=== PATIENT | female | born 1970 | race Caucasian/White ===

== ENCOUNTER 2023-10-29 13:45 | Emergency (ER) | payer BC, SELFPAY ==
[2023-10-29 13:51] VITALS: BP 135/102; BMI 20.7
[2023-10-29 14:16] LABS: % Basophils 0.8 % (0-2); % Eosinophils 0.5 % (0-6); % Immature Granulocytes 0.3 % (0-0.5); % Lymphocytes 25.6 % (20.5-51.1); % Monocytes 5.4 % (1.7-9.3); % Neutrophils 67.4 % (42.2-75.2); Absolute Basophils 0.1 10^3/uL (0-0.2); Absolute Lymphocytes 1.5 10^3/uL (1.2-3.4); Absolute Monocytes 0.3 10^3/uL (0.1-0.6); Hematocrit 39.2 % (37.0-47.0); Hemoglobin 13.7 g/dL (12.0-16.0); Mean Corp Hgb Conc. 34.9 g/dL (33.0-37.0); Mean Corpuscular Hgb 30.3 pg (27.0-31.0); Mean Corpuscular Volume 86.7 fL (81.0-99.0); Mean Platelet Volume 10.4 fL (7.4-10.4); Nucleated Red Blood Cells % 0 %; Platelet Count 231 10^3/uL (130-400); Red Blood Cell Count 4.52 10^6/uL (4.20-5.40); White Blood Cell Count 5.9 10^3/uL (4.8-10.8)
[2023-10-29 14:27] LABS: APTT 24.2 Sec (23.4-35.0)
[2023-10-29 14:28] LABS: ALT (SGPT) 18 U/L (0-35); AST (SGOT) 27 U/L (14-36); Albumin 4.7 g/dl (3.5-5.0); Alkaline Phosphatase 96 U/L (38-126); Blood Urea Nitrogen 17 mg/dl (7-17); Calcium 9.7 mg/dl (8.4-10.2); Carbon Dioxide 28 mmol/L (22-30); Chloride 102 mmol/L (98-107); Estimated Creatinine Clearance 76 ml/min; Glucose 103 mg/dl (70-99); Potassium 3.7 mmol/L (3.5-5.1); Sodium 136 mmol/L (135-145); Total Bilirubin 0.9 mg/dl (0.2-1.3); Total Protein 7.6 g/dl (6.3-8.2); eGFR > 60.00
[2023-10-29 14:40] LABS: Troponin I < 0.012 ng/ml
--- NOTE | 2023-10-29 15:59 | ED.GENMED ---
History of Present Illness
General
Chief Complaint: Cardiac Symptoms
Source: patient
Exam Limitations: none
Time Seen by Provider: 10/29/23 15:57
Travel History
Have you had any contact with someone who has COVID-19?: No
Do you have any symptoms of coronavirus? Fever > 100 degrees, chills, cough, shortness of breath, sore throat, loss of taste or smell, muscle aches, or headache?: No
History of Present Illness
History of Present Illness:
52-year-old healthy female sudden onset of nausea no vomiting or diarrhea no initial chest pain while driving at about 1:30 PM today. This was followed by some tingling of the left face and left arm. [place] like her heart was pounding and slightly
racing. Could not discern whether it was significantly rapid or irregular. She then felt like she was near syncopal. She went home lie down had some persistent symptoms and presents for evaluation. She currently feels well. Currently denies
chest pain shortness of breath unusual headache neurologic symptoms febrile. Patient exercises regularly without difficulty. She did yoga this morning. She did workout the last few days without issues. She does not see a chiropractor. She has
had no neck manipulation and no neck pain.
Past History
Past History
ED Past Medical History: None
ED Past Surgical History: None
Social History
Tobacco: Non-smoker
Drug: None
Personal:
Living: with family
Employment: Employed
Family History
Family History: Other
Review of Systems
Review of Systems
All Other Systems: Not applicable
Constitutional: Denies fever
Respiratory: Reports no symptoms
ABD/GI: Denies abdominal pain, bloody stools or black stools
Phy Exam
Physical Exam
Physical Exam:
GENERAL: Alert and oriented in no apparent distress
EYE: Orbits normal. Extraocular muscles intact
NECK: Supple, no carotid bruit
ENT: Pharynx without erythema
CARDIAC: Regular rate and rhythm without any obvious murmurs.
LUNGS: Clear breath sounds,normal
ABDOMEN: Soft, without focal tenderness or distention
NEUROLOGICAL: Alert and oriented , speech normal. Cranial nerves II through XII intact. Upper extremity strength normal. Lower extremity strength normal. Light touch intact.
SKIN: Warm and dry, no rash or lesion, no discoloration, skin intact.
MUSCULOSKELETAL: No edema,no deformity.Good color
PSYCH: Normal and appropriate interaction.
Course
Orders/Labs/Results
Orders:
Orders
10/29/23 13:54
Electrocardiogram (*1) Urgent
Reason for Study: Other
Other Reason for Exam: Possible Stroke
10/29/23 13:55
EKG- Treatment ONCE
10/29/23 14:03
Complete Blood Count/With Diff Urgent
Comprehensive Metabolic Panel Urgent
D-Dimer Urgent
Comment: ADD ON
PTT Urgent
Prothrombin Time Urgent
Troponin I Urgent
10/29/23 16:10
Add On- LAB Urgent
Tests Added?: d-dimer
10/29/23 16:11
Cardiac Monitoring- Treatment ONCE
10/29/23 17:28
CXR2 [CR Chest - 2 Views ] Urgent
Comment:
Reason For Exam: palpitations. cp
10/29/23 17:29
Electrocardiogram (*1) Stat
Reason for Study: Other
Other Reason for Exam: chest pain
EKG- Treatment ONCE
10/29/23 18:02
Troponin I Urgent
Abnormal Lab Results
10/29/23
14:03
PT 15.0 H Sec
(11.4-14.6)
Glucose 103 H mg/dl
(70-99)
10/29/23 14:03
10/29/23 14:03
Vital Signs
Initial and Last Documented VS:
Initial Vital Signs
Temp Pulse Resp BP Pulse Ox
98 F 94 16 135/102 100
10/29/23 13:51 10/29/23 13:51 10/29/23 13:51 10/29/23 13:51 10/29/23 13:51
Last Documented Vital Signs
Temp Pulse Resp BP Pulse Ox
98 F 83 20 106/65 97
10/29/23 13:51 10/29/23 18:15 10/29/23 18:15 10/29/23 18:00 10/29/23 18:15
*Pulse Oximetry
Patient hypoxic: no
*EKG
Interpreted by ED Provider?: Yes
Interpretation: normal
Comparison EKG: no changes
Heart Rate: 89
Rate: normal
Rhythm: sinus
[place]: normal axis
Interval: normal interval
QRS Pattern: normal QRS
Ischemia: no ischemia
*Critical Care Note
Total Time (30-74mins, 75-104mins- exclusive of procedures): Not Applicable
Update Note
Update Note:
Patient with no risk factors for serious cardiac vascular disease. Exercises regularly without issues and has done this recently. Very very atypical for anginal equivalent. Has not likely describing SVT or atrial fibrillation. She is not
describing her heart rate is that fast. Workup in progress. No signs of neurologic issues.
Repeat EKG normal sinus rhythm no acute changes. Repeat troponin negative. Is remained stable and nontoxic. No serious issues found. No exertional component. Patient exercises regularly. Discharged to follow-up
ED Attending Note
-
Portions of this chart may have been created with voice recognition software.� Occasional wrong word or��sound alike� substitutions may have occurred due to the inherent limitations of voice recognition software.
Discharge Plan
Departure
Patient Disposition: Home (Routine Discharge)
Date of Disposition: 10/29/23
Time of Disposition: 18:43
Patient with high blood pressure during this ER visit?: No
Discharge Problem:
Near syncope, Transient nausea, Transient paresthesias
Instructions: Paresthesia (DC), Palpitations (DC), Near Fainting (DC)
Prescriptions:
No Action
levonorgestrel [Mirena] 1 EACH intrauterine device
1 ea IY DAILY
lansoprazole 30 MG tablet,disintegrat, delay rel
30 mg PO DAILY 14 Days Qty: 28 0RF
Rx Instructions:
Take in the morning
Referrals:
Maxx Colon MD [Family Provider] - Follow up in 2-3 days
Interventions
Interventions:
*Risk Screen - Suicide Last Done: 10/29/23 13:51
*Neglect/Abuse Screening Last Done: 10/29/23 13:51
ED- Fall Risk Assessment Last Done: 10/29/23 17:19
*ED COVID-19 Vaccine History Last Done: 10/29/23 13:51
ED- Cardiac Assessment Last Done: 10/29/23 17:19
ED- Pulmonary Assessment Last Done: 10/29/23 17:19
[2023-10-29 17:15] LABS: D-Dimer < 0.27 ug/mlFEU (0.00-0.50)
[2023-10-29 17:20] VITALS: BP 101/68
[2023-10-29 18:00] VITALS: BP 106/65
[2023-10-29 18:34] LABS: Troponin I < 0.012 ng/ml
[2023-10-29 19:01] VITALS: BP 101/79
== END 2023-10-29 19:10 | disposition home or self-care (01) ==
LOC: EMR 13:45
PROVIDERS: Emergency Medicine; EMERGENCY PHYSICIAN Emergency Medicine; FAMILY PHYSICIAN Family Medicine
DX: R20.2 Paresthesia of skin (principal); R11.0 Nausea; R55 Syncope and collapse
CPT/HCPCS: 99285; 71046; 80053; 84484; 85025; 85379; 85610; 85730; 93005

== ENCOUNTER → 2024-09-25 07:49 | Outpatient (REF) | payer BC, SELFPAY | LOC: WDC 07:49 | PROVIDERS: ATTENDING PHYSICIAN Family Medicine; REFERRING PHYSICIAN Nurse Practitioner Obstetrics & Gynecology | DX: Z12.31 Encounter for screening mammogram for malignant neoplasm of breast (principal); Z98.82 Breast implant status | CPT/HCPCS: 77063; 77067 ==